=== PATIENT | female | born 1970 ===

== ENCOUNTER 2022-08-07 19:11 | Emergency (ER) | payer OTHER ==
[~2022-08-07] VITALS: Ht 165.1 cm; Wt 60.8 kg
== END 2022-08-07 21:50 | disposition home or self-care (01) ==
LOC: ER 19:11
DX: S61.012A Laceration without foreign body of left thumb without damage to nail, initial encounter (principal); W26.0XXA Contact with knife, initial encounter; Z23 Encounter for immunization
CPT/HCPCS: 90714